=== PATIENT | male | born 1960 | race Caucasian/White ===

== ENCOUNTER → 2016-12-01 | Day surgery (SDC) | payer OTHER ==
[~2016-12-01] VITALS: Ht 185.4 cm; Wt 108.9 kg
[~2016-12-01] MED LIST: AMLODIPINE-BEN1 EAC4 PO; ASPIRIN EC81 M1 PO; BACTRIM DS TAB1 EACH PO; CRESTOR40 M2 PO; JARDIANCE
--- NOTE | 2016-12-01 12:32 | Operative Report ---
Operative/Inv Procedure Report Surgery Date: 12/01/16 Name of Procedure: L renal ESWL Pre-Operative Diagnosis: L renal calculus Post-Operative Diagnosis: same Estimated Blood Loss: scant Surgeon/Practicing Urologist: Elías GARCIA,GREGORIA Cabrales Anesthesia: moderate sedation Drains: none Specimens: none Complications: none Condition: stable Operative Indication: This patient presented to the emergency room about a month ago with left flank pain. He has a solitary left kidney which was previously known. CT scan showed a 1.3 cm left proximal ureteral calculus with hydronephrosis. Left ureteral stent was placed. During that procedure the left ureteral stone migrated back into the lower pole of the left kidney. He is now scheduled for left renal ESWL Operative/Procedure Note Note: The patient was taken to the lithotripsy room and identified. He was placed in supine position on the lithotripsy table and a timeout was executed appropriately with the patient awake. Stone was localized to the F2 focal point using ultrasound. Intravenous sedation was given by anesthesia. A surgical pause was executed appropriately. The lithotripsy procedure was then begun. A total of 2500 shocks were given. Initially the energy level was low and was increased to a maximum. The patient tolerated the procedure well. At its completion he was taken to the same-day surgery area Findings: 1.3 cm renal calculus in the left lower pole Discharge Disposition: Same Day Admissions
== END ==
LOC: STS 02:24
DX: N13.2 Hydronephrosis with renal and ureteral calculous obstruction (principal); Z87.442 Personal history of urinary calculi; E11.9 Type 2 diabetes mellitus without complications; Z79.84 Long term (current) use of oral hypoglycemic drugs; I10 Essential (primary) hypertension
CPT/HCPCS: 93005; 93010; J0690; J1885; J2250

== ENCOUNTER → 2017-01-12 | Day surgery (SDC) | payer OTHER ==
--- NOTE | 2017-01-12 09:07 | Operative Report ---
Operative/Inv Procedure Report Surgery Date: 01/12/17 Name of Procedure: Cystoscopy, left ureteroscopy, laser lithotripsy of left ureteral stone, basket extraction of stone fragments, insertion of left double-J ureteral stent Pre-Operative Diagnosis: Left ureteral stone Post-Operative Diagnosis: Same Estimated Blood Loss: scant Surgeon/Econometrics Professor: Be GARCIA, Gregoria HOLCOMB MD,GREGORIA Cabrales Anesthesia: laryngeal mask airway Drains: 26 cm 6 [place] left double-J ureteral stent with long suture Specimens: Urine culture and left ureteral stone fragments Complications: None Condition: Stable Operative Indication: This patient has a solitary left kidney. He presented with a stone obstructing the left ureteropelvic junction. A left ureteral stent was placed. He subsequently had left renal ESWL. The stone fragments passed except for 7 mm stone which was lodged at L4. An episode of urosepsis for which he continues on antibiotics. He is now scheduled for left ureteroscopy with laser lithotripsy of the stone and exchange of his left ureteral stent Operative/Procedure Note Note: The patient was taken to the cystoscopy room and identified. He was placed in the supine position on the cystoscopy table. Timeout was executed appropriately with the patient awake. Gen. anesthesia was induced via LMA. He was then placed in dorsal lithotomy position and prepped and draped in usual fashion for cystoscopy. Surgical pause was executed appropriately. A fluoroscopy image was taken with a marker on the left side of the abdomen to confirm the correct side of surgery as well as the correct orientation of the fluoroscopy image. The 22 [place] cystoscope sheath was placed into the bladder under direct vision. The anterior urethra was normal. The prostatic urethra showed mild hypertrophy. The bladder was normal with exception of some edema around the left ureteral orifice. The distal end of the left ureteral stent could be seen. The distal end of the stent was grasped and pulled out the external urethral meatus. A guidewire was placed through the stent up the level of the left kidney. The stent was then removed. The double-lumen catheter was placed over the wire and a hydrophilic wire placed through the second lumen. The double-lumen catheter was removed leaving both wires in place. Over the hydrophilic wire was placed the flexible ureteroscope. At the level of L4 a 7 mm stone seen. The 220 holmium laser fiber was then placed through the ureteroscope and the stone fragmented into multiple fragments. A spiral basket was then placed through the scope and the largest fragments removed. At this point the short rigid ureteroscope was advanced through the bladder and the left ureter and the remaining stone fragments were grasped with a basket and pulled down into the bladder. At this point ureteroscopy revealed no remaining left ureteral stone fragments of any significance. The cystoscope was back loaded onto the guidewire. Open-ended catheter was placed over the wire and the wire removed. Some contrast was injected to outline the left renal collecting system. The guidewire was placed back through the open-ended catheter which was removed. Over the guidewire under visual fluoroscopic control a 26 cm 6 [place] left double-J ureteral stent was placed. A long suture was left attached the distal and the stent exiting the urethra. Fluoroscopy confirmed the proximal and the stent coiled in the left renal collecting system and the distal end coiled in the bladder. Patient tolerated the procedure well. At its completion was taken recovery in stable condition. This ia operative dictation on Kurt Luz Findings: 7 mm left ureteral calculus at the level of L4 Discharge Disposition: PACU
--- NOTE | 2017-01-12 16:14 | RADIOLOGY REPORT ---
EXAMINATION: XR ABDOMEN CLINICAL INDICATION: Left stent placement and retrograde examination. COMPARISON: None TECHNIQUE: Fluoroscopic imaging of the abdomen was utilized. Number of saved images: 10. Fluoroscopy time: 1 minute, 10.9 seconds. Dose: 927.22 mrad FINDINGS: Please refer to the operative report. The retrograde pyelogram shows no evidence of hydronephrosis. A left ureteral stent was deployed. IMPRESSION: Fluoroscopic imaging assistance was provided to the operating room for left ureteral stent placement.
== END ==
LOC: STS 02:16
DX: N20.1 Calculus of ureter (principal); Z87.442 Personal history of urinary calculi; Q60.0 Renal agenesis, unilateral; E11.8 Type 2 diabetes mellitus with unspecified complications; I10 Essential (primary) hypertension
CPT/HCPCS: 74000; 87086; C2617; J0131; J1100; J1885; J2250; J2405